=== PATIENT | female | born 1955 | race Caucasian/White ===

== ENCOUNTER → 2016-10-22 | Outpatient (CLI) | payer BC ==
[~2016-10-22] MED LIST: ASPI-611 PO; CARV6.252 PO; CHOL100017 PO; FURO40TA5 PO; LACT1CAP67 PO; LISI2.5T2 PO; LORA-326 PO; MULT-806 PO; POTA20TA87 PO; SENN-99; TRAZ-170 PO; VENL-68 PO
[2016-10-22 17:07] LABS: ABSOLUTE RETICS # 0.05 T/MM3 (0.0300-0.0900); RETICULOCYTE % 1.5 % (0.6-1.7); RETICULOCYTE HGB 36.8 PG (30.8-36.6)
[2016-10-23 02:25] LABS: FERRITIN 33.8 NG/ML (11-264)
== END ==
LOC: LAB 16:45
PROVIDERS: ATTEND Family Medicine
DX: D64.9 Anemia, unspecified (principal)
CPT/HCPCS: 36415; 82607; 82728; 82747; 83010; 83540; 83550; 83615; 85045